=== PATIENT | female | born 1990 | race African-American/Black ===

== ENCOUNTER 2021-07-21 11:07 | Emergency (ER) | payer SELFPAY ==
[~2021-07-21] VITALS: Ht 167.6 cm; Wt 76.7 kg
[2021-07-21] MEDS ORDERED: ACETAMINOPHEN500 MG PO (11:26)
[2021-07-21] MEDS ORDERED: CEFDINIR300 MG PO (11:26)
== END 2021-07-21 11:30 | disposition home or self-care (01) ==
LOC: FSED 11:27
DX: R05 Cough (principal); U07.1 COVID-19; J40 Bronchitis, not specified as acute or chronic
CPT/HCPCS: 99282

== ENCOUNTER 2023-03-02 10:25 | Emergency (ER) | payer SELFPAY ==
[~2023-03-02] VITALS: Ht 167.6 cm; Wt 76.7 kg
[~2023-03-02 10:25] MED LIST: ACETAMINOPHEN500 MG PO; CEFDINIR300 MG PO
== END 2023-03-02 11:34 | disposition home or self-care (01) ==
LOC: ER 10:29
DX: N64.4 Mastodynia (principal); R50.9 Fever, unspecified; N60.11 Diffuse cystic mastopathy of right breast
CPT/HCPCS: 99282